=== PATIENT | male | born 1970 | race Caucasian/White ===

== ENCOUNTER 2020-06-27 12:30 | Outpatient (CLI) | payer BC ==
--- NOTE | 2020-06-27 12:56 | RAD ---
EXAM: Chest PA and lateral: HISTORY: Positive COVID 19 patient. Cough. COMPARISON: None FINDINGS: Heart: Normal cardiac silhouette Aorta: Unremarkable Pulmonary vessels: Normal Costophrenic angles: Costophrenic angles are clear. Lungs: Scattered interstitial opacities with more focal right upper lobe infiltrate. Pneumothorax: No pneumothorax Osseous structures: No osseous abnormalities IMPRESSION: Scattered interstitial and alveolar opacities, compatible with COVID 19 pneumonia.
== END 2020-06-27 12:31 | disposition home or self-care (01) ==
LOC: BICRAD 12:30
PROVIDERS: ATTEND Physician Assistant
DX: U07.1 COVID-19 (principal); R50.9 Fever, unspecified; R91.8 Other nonspecific abnormal finding of lung field
CPT/HCPCS: 71046